=== PATIENT | female | born 1950 | race Caucasian/White ===

== ENCOUNTER → 2017-09-11 | Outpatient (CLI) | payer MEDICARE, MEDICAID | END | disposition home or self-care (01) | LOC: RAD 11:30 | DX: Z13.820 Encounter for screening for osteoporosis (principal); M19.90 Unspecified osteoarthritis, unspecified site; M06.9 Rheumatoid arthritis, unspecified; E55.9 Vitamin D deficiency, unspecified; G89.29 Other chronic pain; R29.890 Loss of height; Z78.0 Asymptomatic menopausal state; Z82.62 Family history of osteoporosis ==

== ENCOUNTER → 2020-04-21 | Outpatient (CLI) | payer MEDICARE | END | disposition home or self-care (01) | LOC: RESCLI 10:55 | PROVIDERS: ATTEND Internal Medicine | DX: I10 Essential (primary) hypertension (principal); J30.9 Allergic rhinitis, unspecified; M05.741 Rheumatoid arthritis with rheumatoid factor of right hand without organ or systems involvement; E55.9 Vitamin D deficiency, unspecified; E78.5 Hyperlipidemia, unspecified; Z79.899 Other long term (current) drug therapy; Z98.51 Tubal ligation status; Z87.891 Personal history of nicotine dependence ==

== ENCOUNTER → 2020-06-14 | Outpatient (CLI) | payer MEDICARE | END | disposition home or self-care (01) | LOC: MAMMO 14:00 | PROVIDERS: ATTEND Family Medicine | DX: Z12.31 Encounter for screening mammogram for malignant neoplasm of breast (principal) ==

== ENCOUNTER → 2020-12-21 | Outpatient (CLI) | payer MEDICARE ==
[2020-12-21 12:37] LABS: BASO # 0.1 10*3/uL (0.0-0.1); BASO % 0.5 % (0.0-1.0); EOS # 0.4 10*3/uL (0.0-0.4); EOS % 3.9 % (1.0-4.0); HEMATOCRIT 42.9 % (37.0-47.0); LYMPH # 2.4 10*3/uL (1.3-4.4); LYMPH % 24.7 % (27.0-41.0); MEAN CELL VOLUME 91.1 fl (81.0-99.0); MEAN CORPUSCULAR HGB 31.4 pg (27.0-31.0); MEAN CORPUSCULAR HGB CONC 34.5 g/dl (33.0-37.0); MEAN PLATELET VOLUME 9.9 fl (9.6-12.3); MONO # 0.9 10*3/uL (0.1-1.0); MONO % 8.9 % (3.0-9.0); NEUT # 5.9 10*3/uL (2.3-7.9); NEUT % 61.7 % (47.0-73.0); PLATELET COUNT AUTOMATED 286 10*3/uL (130-400); RED BLOOD COUNT 4.71 10*6/uL (4.10-5.10); RED CELL DISTRI WIDTH 12.9 % (0-14.5); WHITE BLOOD COUNT 9.6 10*3/uL (4.8-10.8)
[2020-12-21 12:54] LABS: ALBUMIN 3.8 gm/dl (3.1-4.5); ALKALINE PHOSPHATASE 77 U/L (45-117); BUN 26 mg/dl (7-24); CHLORIDE 105 mmol/L (98-107); CHOLESTEROL 149 mg/dL (<200); CREATININE 1.01 mg/dL (0.55-1.02); POTASSIUM 3.9 mmol/L (3.5-5.1); SGOT/AST 13 IU/L (3-35); SGPT/ALT 26 U/L (12-78); SODIUM 139 mmol/L (136-145); TOTAL PROTEIN 7.5 gm/dL (6.4-8.2); TRIGLYCERIDES 125 mg/dl (<150)
[2020-12-21 13:02] LABS: LDL CHOLESTEROL 72 mg/dL (9-159)
== END | disposition home or self-care (01) ==
LOC: RESCLI 01:59
PROVIDERS: Internal Medicine; ATTEND Internal Medicine
DX: I10 Essential (primary) hypertension (principal); E78.5 Hyperlipidemia, unspecified; E66.01 Morbid (severe) obesity due to excess calories; R26.9 Unspecified abnormalities of gait and mobility; J30.9 Allergic rhinitis, unspecified; E55.9 Vitamin D deficiency, unspecified; M25.50 Pain in unspecified joint; Z79.899 Other long term (current) drug therapy; Z87.891 Personal history of nicotine dependence

== ENCOUNTER → 2021-07-16 | Outpatient (CLI) | payer MEDICARE | END | disposition home or self-care (01) | LOC: RESCLI 04:55 | PROVIDERS: ATTEND Internal Medicine Nephrology | DX: E55.9 Vitamin D deficiency, unspecified (principal); M05.741 Rheumatoid arthritis with rheumatoid factor of right hand without organ or systems involvement; E78.5 Hyperlipidemia, unspecified; M25.50 Pain in unspecified joint; I10 Essential (primary) hypertension; J30.9 Allergic rhinitis, unspecified; Z79.899 Other long term (current) drug therapy ==

== ENCOUNTER → 2022-01-14 | Outpatient (CLI) | payer MEDICARE | END | disposition home or self-care (01) | LOC: RESCLI 07:36 | PROVIDERS: ATTEND Internal Medicine Nephrology | DX: M05.741 Rheumatoid arthritis with rheumatoid factor of right hand without organ or systems involvement (principal); Z79.899 Other long term (current) drug therapy ==

== ENCOUNTER → 2023-01-13 | Outpatient (CLI) | payer MEDICARE | END | disposition home or self-care (01) | LOC: RESCLI 01:17 | PROVIDERS: ATTEND Internal Medicine | DX: E55.9 Vitamin D deficiency, unspecified (principal); M05.7A Rheumatoid arthritis with rheumatoid factor of other specified site without organ or systems involvement; I10 Essential (primary) hypertension; M25.50 Pain in unspecified joint; J30.9 Allergic rhinitis, unspecified; M05.741 Rheumatoid arthritis with rheumatoid factor of right hand without organ or systems involvement; E78.5 Hyperlipidemia, unspecified; R26.9 Unspecified abnormalities of gait and mobility; B02.9 Zoster without complications; Z87.891 Personal history of nicotine dependence; Z98.890 Other specified postprocedural states; Z79.899 Other long term (current) drug therapy ==

== ENCOUNTER 2025-05-16 10:33 | Emergency (ER) | payer MEDICARE ==
[~2025-05-16] VITALS: Ht 172.7 cm; Wt 136.1 kg
[2025-05-16] MEDS ORDERED: PANTOPRAZOLE SO20 MG PO (10:42)
[2025-05-16] MEDS ORDERED: HYDROXYCHLOROQ200 M1 PO (10:42)
[2025-05-16] MEDS ORDERED: ATORVASTATIN CA20 M1 PO (10:43)
[2025-05-16] MEDS ORDERED: DULOXETINE HCL30 MG PO (10:43)
[2025-05-16] MEDS ORDERED: ALLERGY RELIEF10 M4 PO (10:43)
[2025-05-16] MEDS ORDERED: LOSARTAN POTAS100 M1 PO (10:44)
[2025-05-16] MEDS ORDERED: HYDROCHLOROTHIA25 M1 PO (10:44)
[2025-05-16] MEDS ORDERED: FISH OIL 1,0001 EAC7 PO (10:44)
[2025-05-16] MEDS ORDERED: VITAMIN B12500 MC2 PO (10:44)
[2025-05-16] MEDS ORDERED: OYSTER SHELL 51 EAC5 PO (10:45)
[2025-05-16] MEDS ORDERED: VITAMIN D350 MCG PO (10:45)
[2025-05-16] MEDS ORDERED: APAP325 MG PO (10:45)
[2025-05-16 11:38] LABS: BASO # 0.0 10*3/uL (0.0-0.1); BASO % 0.5 % (0.0-1.0); EOS # 0.2 10*3/uL (0.0-0.4); EOS % 2.2 % (1.0-4.0); MEAN CELL VOLUME 97.3 fl (81.0-99.0); MEAN CORPUSCULAR HGB 33.1 pg (27.0-31.0); MEAN PLATELET VOLUME 9.3 fl (9.6-12.3); MONO # 0.6 10*3/uL (0.1-1.0); MONO % 6.9 % (3.0-9.0); NEUT # 5.7 10*3/uL (2.3-7.9); NEUT % 71.1 % (47.0-73.0); NUCLEATED RED BLOOD CELL 0.0 % (0.0-0.0); NUCLEATED RED BLOOD CELL 0.0 10*3/uL (0.0-0.0); PLATELET COUNT AUTOMATED 193 10*3/uL (130-400); RED CELL DISTRI WIDTH 13.0 % (0-14.5)
[2025-05-16 12:03] LABS: BUN 25.0 mg/dl (9-23)
[2025-05-16] MEDS ORDERED: SODIUM CHLORIDE 0.9% 500 ML IV ONE (12:45)
[2025-05-16 14:19] LABS: BILIRUBIN Negative (Negative); BLOOD 3+ (Negative); KETONE Negative (Negative); LEUKO ESTERASE 1+ (Negative); NITRITE Negative (Negative); PH 6.0 (4.5-8.0); SPECIFIC GRAVITY 1.020 (1.001-1.030); UROBILINOGEN 0.2 E.U./dl (0.0-1.0)
[2025-05-16 14:23] LABS: CLARITY Turbid (Clear); COLOR Red (Yellow)
[2025-05-16 14:33] LABS: BACTERIA 1+
== END 2025-05-16 14:48 | disposition home or self-care (01) ==
LOC: ED 10:33
PROVIDERS: Emergency Medicine
DX: N92.4 Excessive bleeding in the premenopausal period (principal); D25.9 Leiomyoma of uterus, unspecified

== ENCOUNTER → 2025-06-08 | Outpatient (CLI) | payer MEDICARE ==
[~2025-06-08] MED LIST: ALLERGY RELIEF10 M4 PO; APAP325 MG PO; ATORVASTATIN CA20 M1 PO; DULOXETINE HCL30 MG PO; ELIQUIS5 M1 PO; FISH OIL 1,0001 EAC7 PO; HYDROCHLOROTHIA25 M1 PO; HYDROXYCHLOROQ200 M1 PO; LOSARTAN POTAS100 M1 PO; OYSTER SHELL 51 EAC5 PO; PANTOPRAZOLE SO20 MG PO; PERFLUTREN PROTEIN-A MICROSPHR 3 ML VIAL IV ONE; Regadenoson 0.4 MG/5 ML SYR IV ONE; VITAMIN B12500 MC2 PO; VITAMIN D350 MCG PO
== END | disposition home or self-care (01) ==
LOC: CARD 02:50
PROVIDERS: ATTEND Internal Medicine
DX: R94.31 Abnormal electrocardiogram [ECG] [EKG] (principal); I48.91 Unspecified atrial fibrillation; I44.7 Left bundle-branch block, unspecified

== ENCOUNTER → 2025-06-22 | Outpatient (CLI) | payer MEDICARE ==
[~2025-06-22] MED LIST changes: -PERFLUTREN PROTEIN-A MICROSPHR 3 ML VIAL IV ONE; -Regadenoson 0.4 MG/5 ML SYR IV ONE
[2025-06-22 08:44] LABS: MEAN CELL VOLUME 99.5 fl (81.0-99.0); MEAN CORPUSCULAR HGB 33.8 pg (27.0-31.0); MEAN PLATELET VOLUME 9.4 fl (9.6-12.3); NUCLEATED RED BLOOD CELL 0.0 % (0.0-0.0); NUCLEATED RED BLOOD CELL 0.0 10*3/uL (0.0-0.0); PLATELET COUNT AUTOMATED 256.0 10*3/uL (130-400); RED CELL DISTRI WIDTH 13.7 % (0-14.5)
[2025-06-22 09:11] LABS: BUN 28.0 mg/dl (9-23)
== END | disposition home or self-care (01) ==
LOC: LAB 08:23
PROVIDERS: ATTEND Nuclear Medicine Nuclear Cardiology
DX: I10 Essential (primary) hypertension (principal); I48.0 Paroxysmal atrial fibrillation; R06.09 Other forms of dyspnea; R94.39 Abnormal result of other cardiovascular function study